=== PATIENT | male | born 1960 | race Caucasian/White ===

== ENCOUNTER 2019-04-11 00:57 | Emergency (ER) | payer OTHER ==
--- NOTE | 2019-04-11 01:56 | EDM.PDOC ---
ED HPI GENERAL MEDICAL PROBLEM - General Chief Complaint: Syncope Stated Complaint: [facility] Time Seen by Provider: 04/11/19 01:19 Source of Information: Reports: Patient, Family (), RN Notes Reviewed History Limitations: Reports: No Limitations - History of Present Illness INITIAL COMMENTS - FREE TEXT/NARRATIVE: The patient states that he and his are visiting [place] with some friends. He states that he had 2 beers this afternoon, and another 2 beers tonight, after the show. He states that he was straining on the toilet for about 30 seconds around 11:30 tonight, in his hotel room in [place], when he felt lightheaded, and apparently suffered a syncopal episode. He fell off the toilet , striking the floor with his forehead, and his right shoulder. He presents with a forehead hematoma, a laceration to his forehead, a laceration to his right cheek area, and right shoulder pain. The patient denies prior syncope, but he states that he has felt lightheaded while straining at the stool in the past. The patient denies recent fever, chills, cough, chest pain, palpitations, nausea , vomiting, constipation, or diarrhea. He denies recently feeling lightheaded when upright. He acknowledges that he does not really exercise. The patient's PCP is Dr. Bay Carrasco, from [place], [place]. Right Shoulder Pain Score (Numeric/FACES): 3 - Related Data Allergies Allergy/AdvReac Type Severity Reaction Status Date / Time No Known Allergies Allergy Verified 04/11/19 01:06 Past Medical History Cardiovascular History: Reports: High Cholesterol, Other (See Below) (Patent foramen ovale, s/p percutaneous closure device) Gastrointestinal History: Reports: Colon Polyp Musculoskeletal History: Reports: Arthritis (knees), Fracture (right elbow) Neurological History: Reports: TIA (right eye) Psychiatric History: Reports: Anxiety Endocrine/Metabolic History: Reports: Hypothyroidism (following thyroidectomy) Oncologic (Cancer) History: Reports: Thyroid (Papillary, s/p thyroidectomy and RTx) - Past Surgical History HEENT Surgical History: Reports: Other (See Below) (Right ear surgery x 2) Cardiovascular Surgical History: Reports: Other (See Below) (Percutaneous PFO closure device) GI Surgical History: Reports: Colonoscopy (x 2). Denies: EGD Musculoskeletal Surgical History: Reports: Arthroscopic Procedure (left knee), ORIF (right elbow) Oncologic Surgical History: Reports: Other (See Below) (THyroid gland x 3 surgeries) Social & Family History - Tobacco Use Smoking Status *Q: Never Smoker - Caffeine Use Caffeine Use: Reports: Soda - Alcohol Use Alcohol Use History: Yes Alcohol Use Frequency: Socially - Recreational Drug Use Recreational Drug Use: No - Living Situation & Occupation Living situation: Reports: , with Spouse Occupation: Employed (entry level programmer) ED ROS GENERAL - Review of Systems Review Of Systems: ROS reveals no pertinent complaints other than HPI. - Physical Exam Exam: See Below Exam Limited By: No Limitations General Appearance: Alert, WD/WN, No Apparent Distress Eye Exam: Bilateral Eye: EOMI, Normal Inspection, PERRL Ears: Normal External Exam, Normal Canal, Hearing Grossly Normal, Normal TMs Nose: Normal Inspection, Normal Mucosa, No Blood Throat/Mouth: Normal Inspection, Normal Lips, Normal Teeth, Normal Gums, Normal Oropharynx, Normal Voice, No Airway Compromise Head Exam: Normocephalic, Facial Abrasions (upper forehead, just right of midline, with mild associated swelling), Facial Lacerations (approximately 1.7 cm linear, partial-thickness, lying horizontally, on the right forehead. Approximately 1.5 cm, macerated, to the right zygomaticum, with associated swelling) Neck: Normal Inspection, Supple, Non-Tender, Full Range of Motion Respiratory/Chest: No Respiratory Distress, Lungs Clear, Normal Breath Sounds, No Accessory Muscle Use Cardiovascular: Normal Peripheral Pulses, Regular Rate, Rhythm, No Edema, No Gallop, No JVD, No Murmur, No Rub GI/Abdominal: Normal Bowel Sounds, Soft, Non-Tender, No Organomegaly, No Distention, No Abnormal Bruit, No Mass (Male) Exam: Deferred Rectal (Males) Exam: Deferred Neuro Exam (Abbreviated): Alert, Oriented, CN II-XII Intact, Normal Cognition ( able to provide his entire history without difficulty), No Motor/Sensory Deficits Back Exam: Normal Inspection, Full Range of Motion, NT Extremities: No Pedal Edema, Normal Capillary Refill, Other (No visible abnormality to the right shoulder, such as swelling, erythema, ecchymosis, or abrasion. The patient reports tenderness to the superior anterolateral shoulder. He reports pain with attempts to flex, abduct, and internally rotate the shoulder against resistance. He denies pain with attempts to extend, adduct , or externally rotate the shoulder against resistance. Pain induced in the same area with passive extension. Full PROM when asked to relax the shoulder. Neurovascular status of the right upper extremity is intact.) Psychiatric: Normal Affect Skin Exam: Warm, Dry, Intact, Normal Color, No Rash EKG INTERPRETATION EKG Date: 04/11/19 Time: 02:00 Rhythm: NSR Rate (Beats/Min): 85 [place]: Normal P-Wave: Present QRS: Normal ST-T: Normal QT: Normal Comparison: NA - No Prior EKG Course - Vital Signs Last Recorded V/S: Last Vital Signs Temp 36.6 C 04/11/19 01:01 Pulse 90 04/11/19 01:01 Resp 16 04/11/19 01:01 BP 139/89 04/11/19 01:01 Pulse Ox 96 04/11/19 01:01 Orthostatic Blood Pressure [ 125/82 Standing] Orthostatic Blood Pressure [ 135/80 Sitting] Orthostatic Blood Pressure [ 116/79 Supine] - Orders/Labs/Meds Labs: Laboratory Tests 04/11/19 04/11/19 04/11/19 Range/Units 01:56 01:56 01:56 WBC 8.82 (4.23-9.07) K/mm3 RBC 4.85 (4.63-6.08) M/mm3 Hgb 15.0 (13.7-17.5) gm/L Hct 42.6 (40.1-51.0) % MCV 87.8 (79.0-92.2) fl MCH 30.9 (25.7-32.2) pg MCHC 35.2 (32.2-35.5) g/dl RDW Std Deviation 40.9 (35.1-43.9) fL Plt Count 210 (163-337) K/mm3 MPV 10.7 (9.4-12.3) fl Neutrophils % (Manual) 78 H (40-60) % Band Neutrophils % 0 (0-10) % Lymphocytes % (Manual) 13 L (20-40) % Atypical Lymphs % 0 % Monocytes % (Manual) 8 (2-10) % Eosinophils % (Manual) 1 (0.8-7.0) % Basophils % (Manual) 0 L (0.2-1.2) Platelet Estimate Adequate Plt Morphology Comment Normal RBC Morph Comment Normal D-Dimer, Quantitative 0.35 (0.19-0.50) mg/L Sodium 141 (136-145) mEq/L Potassium 3.8 (3.5-5.1) mEq/L Chloride 102 (98-107) mEq/L Carbon Dioxide 24 (21-32) mEq/L Anion Gap 18.8 H (5-15) BUN 20 H (7-18) mg/dL Creatinine 1.1 (0.7-1.3) mg/dL Est Cr Clr Drug Dosing 88.55 mL/min Estimated GFR (MDRD) > 60 (>60) mL/min BUN/Creatinine Ratio 18.2 H (14-18) Glucose 115 H (74-106) mg/dL Calcium 8.3 L (8.5-10.1) mg/dL Magnesium 2.0 (1.8-2.4) mg/dl Total Bilirubin 0.5 (0.2-1.0) mg/dL AST 24 (15-37) U/L ALT 36 (16-63) U/L Alkaline Phosphatase 102 (46-116) U/L Troponin I < 0.017 (0.00-0.056) ng/mL Total Protein 7.0 (6.4-8.2) g/dl Albumin 4.1 (3.4-5.0) g/dl Globulin 2.9 gm/dL Albumin/Globulin Ratio 1.4 (1-2) - Re-Assessments/Exams Free Text/Narrative Re-Assessment/Exam: 04/11/19 01:54 The patient's syncopal episode is most likely due to a Valsalva maneuver while straining at the stool, however, I have ordered orthostatics, an ECG, and some blood work to make sure that there is nothing more serious going on. Neither of the 2 lacerations to the patient's face - the partial-thickness laceration to his forehead, or the small macerated laceration to his right cheek , require sutures, however, the abrasion at the upper aspect of the patient's forehead might benefit from some bacitracin ointment and a bandage. 04/11/19 02:10 The patient is not orthostatic. 04/11/19 03:14 Test results discussed with the patient and his . The patient's CBC is unremarkable. The patient's CMP is remarkable for BUN slightly elevated at 20, with a normal creatinine, and a blood glucose slightly elevated at 115, but is otherwise unremarkable. The patient's magnesium level is normal. The patient's troponin is undetectably low. The patient's D-dimer is within normal limits. The patient's ECG is unremarkable. As above, the patient's syncope is most likely due to a Valsalva maneuver while straining at the stool. I recommended that he increase his dietary fiber, such as with Metamucil. The patient's right shoulder pain is most consistent with anterior deltoid injury. He will be fitted with a right arm sling prior to discharge home. I will recommend icing the shoulder is much as possible, along with over-the- counter ibuprofen. If his shoulder does not improve within the next few days, he should follow-up with his PCP once home. Departure - Departure Time of Disposition: 03:19 Disposition: Home, Self-Care 01 Condition: Good Clinical Impression: Syncope and collapse, Facial laceration, Abrasion of forehead, Right shoulder strain - Discharge Information *PRESCRIPTION DRUG MONITORING PROGRAM REVIEWED*: Not Applicable *COPY OF PRESCRIPTION DRUG MONITORING REPORT IN PATIENT VIVIANA: Not Applicable Instructions: Syncope, [id number] Referrals: PCP,Not In Area [Primary Care Provider] - Forms: ED Department Discharge Additional Instructions: You were seen in the emergency room after passing out while on the toilet, cutting and abrading your face, and injuring your right shoulder. Workup in the ER included blood work, positional blood pressure checks, and an ECG. Your entire workup was unremarkable. You are not anemic. No electrolyte abnormalities were found. You have not suffered a heart attack. You do not have a blood clot in your lungs. You are not dehydrated. Neither of the 2 lacerations on your face require sutures, however, we do recommend that you keep the abrasion on your forehead clean with ordinary soap and water when you bathe. Pat the area dry, then apply a thin smear of bacitracin (not Neosporin) ointment, before applying a clean bandage, daily. Your right shoulder injury is most consistent with anterior deltoid strain. You have been placed into an arm sling, which you should wear whenever you are up and about. We recommend the you apply an ice pack to your right shoulder as much as possible for the next 2 or 3 days, to help reduce inflammation. Take [id number] ibuprofen, 2-3 tablets (400-600 mg) every 8 hours, with food, as needed for discomfort. If your shoulder has not significantly improved within the next few days, please follow-up with your PCP back home, for further evaluation. If any other problems, please do not hesitate to return to the ER.
== END 2019-04-11 03:28 | disposition home or self-care (01) ==
LOC: JD.ED 00:57
DX: S01.81XA Laceration without foreign body of other part of head, initial encounter (principal); S46.911A Strain of unspecified muscle, fascia and tendon at shoulder and upper arm level, right arm, initial encounter; R55 Syncope and collapse; E78.00 Pure hypercholesterolemia, unspecified; F41.9 Anxiety disorder, unspecified; E03.9 Hypothyroidism, unspecified; W18.11XA Fall from or off toilet without subsequent striking against object, initial encounter
CPT/HCPCS: 36415; 80053; 83735; 84484; 85007; 85027; 85379; 93005; 99284-25